=== PATIENT | female | born 1980 ===

== ENCOUNTER 2018-07-02 15:00 | Inpatient (IN) | payer OTHER ==
[~2018-07-02] VITALS: Ht 157.5 cm; Wt 55.8 kg
== END 2018-07-07 15:20 | disposition home or self-care (01) | DRG 690 ==
LOC: ER 15:00 → SEC-K 07-03 08:15 → MEDJ 07-03 14:01
PROC: BT43ZZZ Ultrasonography of Bilateral Kidneys (ICD-10-PCS; principal; 2018-07-03)
PROC: BW25ZZZ Computerized Tomography (CT Scan) of Chest, Abdomen and Pelvis (ICD-10-PCS; 2018-07-03)
DX: N10 Acute pyelonephritis (principal); B96.29 Other Escherichia coli [E. coli] as the cause of diseases classified elsewhere